=== PATIENT | female | born 1960 | race African-American/Black ===

== ENCOUNTER 2024-11-15 17:52 | Emergency (ER) | payer MEDICAID ==
[~2024-11-15] VITALS: Ht 160 cm; Wt 81.0 kg
[2024-11-15 18:07] VITALS: O2SAT 98
[2024-11-15] MEDS ORDERED: KETOROLAC 15MG/ML VIAL IV ONE (20:45)
[2024-11-15 21:28] LABS: BASOPHILS % 0.6 % (0.0-2.0); EOSINOPHILS % 1.6 % (0.0-5.0); HEMATOCRIT. 29.5 % (36.0-48.0); HEMOGLOBIN. 9.1 g/dL (12.0-16.0); LYMPHOCYTES % 15.3 % (20.0-50.0); MEAN PLATELET VOLUME 7.7 fl (7.4-10.4); MONOCYTES % 13.1 % (2.0-8.0); NEUTROPHILS % 69.4 % (40.0-76.0); PLATELET 211 x1000/uL (130-400); RED BLOOD CELL COUNT 3.76 mill/uL (4.2-5.4); RED CELL DISTRIBUTION WIDTH 19.0 % (11.6-14.6)
[2024-11-15 21:43] LABS: CREATININE 1.5 mg/dL (0.6-1.0); UREA NITROGEN BLOOD 16.0 mg/dL (9-23)
[2024-11-15] MEDS: HYDROCODONE/ACETAMINOPHEN 5/325MG TABLET PO ONE (22:07)
[2024-11-15] MEDS ORDERED: T3 PO (22:30)
[2024-11-15 23:05] VITALS: BP 152/84; PULSE 78; RESP 20; TEMP 36.6; O2SAT 98
== END 2024-11-15 23:25 | disposition home or self-care (01) ==
LOC: ER 17:52
DX: M77.32 Calcaneal spur, left foot (principal); D50.9 Iron deficiency anemia, unspecified; R79.89 Other specified abnormal findings of blood chemistry; E11.9 Type 2 diabetes mellitus without complications; E78.00 Pure hypercholesterolemia, unspecified; I11.0 Hypertensive heart disease with heart failure; I50.9 Heart failure, unspecified
CPT/HCPCS: 36415; 73630; 80048; 85025; 99284; J1885